=== PATIENT | male | born 1955 | race Asian ===

== ENCOUNTER → 2020-02-15 | Outpatient (CLI) | payer OTHER ==
[~2020-02-15] MED LIST: NOCURR
== END | disposition home or self-care (01) ==
LOC: RADPV 13:32
PROVIDERS: ATTEND Family Medicine
DX: M25.571 Pain in right ankle and joints of right foot (principal); M25.572 Pain in left ankle and joints of left foot; M54.9 Dorsalgia, unspecified
CPT/HCPCS: 72072; 72100; 73521